=== PATIENT | male | born 1965 | race Caucasian/White ===

== ENCOUNTER 2024-01-14 12:55 | Emergency (ER) | payer OTHER ==
[~2024-01-14] VITALS: Ht 172.7 cm; Wt 104.3 kg
[2024-01-14 13:06] VITALS: BP_SYST 142; PULSE 79; RESP 16; TEMP 97.6; O2SAT 96
[2024-01-14 13:45] VITALS: BP_SYST 142; PULSE 79; RESP 16; TEMP 97.6; O2SAT 96
[2024-01-14] MEDS: BACITRACIN 1 GM OINT TP ONE (14:02)
[2024-01-14] MEDS: LIDOCAINE 1% 10 MG/ML, 20 ML MDV INJ ONE (14:02)
[2024-01-14] MEDS: DIPHTH,PERTUSS(ACELL),TET VAC 0.5 ML VIAL (Tdap) I.M. ONE (14:27)
== END 2024-01-14 15:00 | disposition home or self-care (01) ==
LOC: SED 12:55
DX: S61.212A Laceration without foreign body of right middle finger without damage to nail, initial encounter (principal); W31.2XXA Contact with powered woodworking and forming machines, initial encounter; Y93.89 Activity, other specified; Y92.89 Other specified places as the place of occurrence of the external cause; Y99.8 Other external cause status
CPT/HCPCS: 90715; 99283

== ENCOUNTER 2024-01-21 10:34 | Emergency (ER) | payer OTHER ==
[~2024-01-21] VITALS: Ht 167.6 cm; Wt 77.1 kg
[2024-01-21 10:50] VITALS: BP_SYST 156; PULSE 78; RESP 17; TEMP 97.8; O2SAT 95
[2024-01-21 11:24] VITALS: BP_SYST 156; PULSE 78; RESP 17; TEMP 97.8; O2SAT 95
== END 2024-01-21 11:23 | disposition home or self-care (01) ==
LOC: SED 10:34
DX: Z48.00 Encounter for change or removal of nonsurgical wound dressing (principal)
CPT/HCPCS: 99281